=== PATIENT | male | born 1955 | race Caucasian/White ===

== ENCOUNTER 2019-03-05 15:15 | Outpatient (CLI) | payer OTHER, SELFPAY ==
--- NOTE | 2019-03-05 | CT_ITS ---
WS: [id number] CT CHEST TECHNIQUE: Noncontrast CT of the chest with coronal and sagittal reformatted images. CLINICAL INFORMATION: APICAL PLEURAL THICKENING COMPARISON: None. DLP: 940.[address] scans at [facility] use at least one of these dose optimization techniques: automat ed exposure control; mA and/or kV adjustment per patient size (includes targeted exams where dose is matched to clinical indication); or iterative reconstruction. FINDINGS: Mild chronic emphysematous changes. No acute pulmonary infiltrates. No consolidation or pleural fluid . Slight fibrosis in the lung apices. Noncalcified pulmonary nodule right middle lobe anteriorly ebony uring 3.5 mm. Additional 4 mm noncalcified nodule left lung base. Recommend 6 month follow-up. Slightly prominent ascending thoracic aorta measuring 3.7 CM. Coronary calcification. No mediastinal or hilar lymphadenopathy. Adrenal glands are normal. Normal caliber upper abdominal aorta. CT/CT chest wo con [id number] IMPRESSION: 1. Mild chronic emphysematous changes. No acute pulmonary infiltrates. 2. 2. Small noncalcified pulmonary nodules in right middle lobe and left lower lobe measuring 3 to 4 mm. Recommend 6 month follow-up. 3. No mediastinal or hilar lymphadenopathy. 4. Slightly prominent ascending thoracic aorta measuring 3.7 mm upper limits o f normal. 5. Coronary calcification.
== END 2019-03-05 15:16 | disposition home or self-care (01) ==
LOC: RAD 15:17
PROVIDERS: Family Provider Internal Medicine; PCP Internal Medicine; Visit Provider Nurse Practitioner
DX: J43.9 Emphysema, unspecified (principal); R91.8 Other nonspecific abnormal finding of lung field; I25.10 Atherosclerotic heart disease of native coronary artery without angina pectoris; I71.2 Thoracic aortic aneurysm, without rupture
CPT/HCPCS: 71250

== ENCOUNTER 2019-03-26 07:04 | Outpatient (CLI) | payer OTHER, SELFPAY ==
--- NOTE | 2019-03-26 07:00 | CT_ITS ---
WS: [id number] CT LEFT LOWER LEG WITH CONTRAST. HISTORY: hematoma, BB placed on a palpable area over the LEFT lower leg. Prior history of trauma. Technique: All CT scans at [facility] use at least one of these dose optimization techniq ues: automated exposure control; mA and/or kV adjustment per patient size (includes targeted exams wh ere dose is matched to clinical indication); or iterative reconstruction. DLP: 1241.89 mGy-cm. Contrast: Omnipaque 300; 95 mL. COMPARISON: None available. There is a soft tissue superficial mass anterior to the distal tibia extending over length of 4.8 cm transversely by 3.8 and anterior posterior by 1.4 cm. This is probably a small resolving hematoma in the superficial soft tissues. Slight mass effect upon the adjacent muscles. There is contiguous edema extending inferiorly over the lateral ankle and foot. The underlying bone is intact. No fractures. CT/CT lower leg LT w con [id number] IMPRESSION: 1. Soft tissue nonenhancing mass over the anterior distal tibia measures 4.8 x 3.8 x 1.4 cm. Most consistent with a resolving hematoma. 2. No fracture. 3. Soft tissue edema continues distally from the hematoma over the foot and an kle.
[2019-03-26] MEDS: iohexol 300 mg/mL 100 mL Btl 95 ML IV (07:43)
== END 2019-03-26 07:05 | disposition home or self-care (01) ==
LOC: CT 07:05
PROVIDERS: Family Provider Internal Medicine; PCP Internal Medicine; Visit Provider Surgery
DX: S80.12XA Contusion of left lower leg, initial encounter (principal)
CPT/HCPCS: 73701; Q9967

== ENCOUNTER 2019-06-10 10:58 | Emergency (ER) | payer OTHER, SELFPAY ==
[2019-06-10 11:16] VITALS: BP 181/96; PULSE 84; RESP 16; TEMP 36.9; BMI 28.5
[2019-06-10 11:20] VITALS: O2SAT 98
--- NOTE | 2019-06-10 11:27 | XR_ITS ---
WS: [id number] CHEST XRAY TECHNIQUE: Portable chest. CLINICAL INFORMATION: dyspnea/cough COMPARISON: April 23, 2016 FINDINGS: Heart: Normal cardiac silhouette. Lungs: Lungs are clear. No consolidation or pleural effusion. Bones: Normal visualized bony structures. XR/XR chest 1V portable [id number] IMPRESSION: Normal chest
--- NOTE | 2019-06-10 11:28 | ED_ITS ---
HPI - General Adult General: Chief complaint: General Medical Stated complaint: SOB, HIGH BP, WEAKNESS Time Seen by Provider: 06/10/19 11:14 History of Present Illness: HPI narrative: 64 yo male c/o of elevated B/P and headache. He has a history of COPD and notices he has increasing dyspnea over the last month. He has been using an inhaler that he does not know the name of that he took from his father's estate says it does not seem to be helping much. He has noticed that with any exertion he gets very short of breath he cannot really report on whether or not resting seems to improve it. He denies any fever does not really have a productive cough denies any nausea vomiting or diarrhea denies any other illness symptoms lately he is extremely anxious and verbose in his history. Associated symptoms: Reports dyspnea; Deny chest pain, malaise, nausea, rash or vomiting Review of Systems Const: Denies: fever, chills, body aches, change in appetite, fatigue or malaise ENMT: Denies: throat pain, ear pain, nasal discharge or nasal congestion Card: Reports: shortness of breath on exertion; Denies: chest pain, edema or shortness of breath when lying down Resp: Reports: shortness of breath; Denies: productive cough or non-productive cough GI: Denies: abdominal pain, nausea, vomiting, vomiting blood, coffee grounds in vomit, diarrhea, constipation, bloating, blood in stool or black tarry stool : Denies: flank pain, painful urination, urinary frequency or urinary urgency Skin/Breast: Denies: rash or itching PFSH ED PFSH: Social History Smoking and tobacco status: current every day smoker cigarettes Packs smoked per day: 1 Second hand smoke exposure: No Alcohol intake: never Adopted: No Caregiver/support person: Yes Lives independently: Yes Household members: spouse Housing: House Marital status: Single service: No Current occupational status: employed Current occupation: [employer] Current occupational exposures/hazards: No Pets and animals: No History of recent travel: No Leisure activites: exercise, hunting and fishing Sexually active: No Current gender identity: Male Mena/Orthodox: Rastafari Special mena needs: No Agree to transfusion: No Financial difficulty paying for basics: Decline to Answer Physical Exam Const: COMMON NORMALS: no apparent distress GENERAL APPEARANCE: cooperative and comfortable ORIENTATION/CONSCIOUSNESS: Yes awake, Yes oriented to person, Yes oriented to place and Yes oriented to time HENMT: COMMON NORMALS: normocephalic, head/scalp atraumatic, hearing grossly normal bilaterally, external ears normal, EAC's normal, TM's normal bilaterally, nasal mucous membranes and turbinates normal, moist oral mucous membranes and oropharynx normal HEAD & SCALP: normocephalic and atraumatic NOSE: nasal m ucous membranes and turbinates normal EXTERNAL EAR: Yes external ears normal EXTERNAL AUDITORY CANAL: EAC's normal TYMPANIC MEMBRANE: TM's normal bilaterally Eye: COMMON NORMALS: PERRL, EOMs intact bilaterally, conjunctivae normal and no scleral icterus CONJUNCTIVA: Yes conjunctivae normal PUPIL: Yes PERRL Neck/C-Spine: COMMON NORMALS: full ROM, no lymphadenopathy, supple and no JVD Lymph: LYMPHATIC: no lymphadenopathy noted and no lymphedema noted Resp: COMMON NORMALS: normal respiratory effort, no retractions, no use of accessory muscles and clear to auscultation bilaterally AUSCULTATION: clear to auscultation bilaterally Cardio: COMMON NORMALS: no JVD, regular rate, regular rhythm and no murmurs RATE: regular rate RHYTHM: regular rhythm GI: COMMON NORMALS: soft to palpation and no hepatosplenomegaly AUSCULTATION: Yes normoactive bowel sounds PALPATION: Yes soft, No tender, No guarding and Yes no hepatosplenomegaly Extremity: COMMON NORMALS: normal to inspection, normal capillary refill, no clubbing, cyanosis or edema, no calf tenderness and no pedal edema Neuro: SENSORIUM/ORIENTATION: Yes oriented to person, Yes oriented to place and Yes oriented to time Skin: COMMON NORMALS: no rashes or lesions noted GENERAL SKIN EXAM: no rashes or lesions noted Course Vital Signs: Vital signs: Vital Signs Temperature 98.5 F 06/10/19 11:16 Pulse Rate 85 06/10/19 13:05 Respiratory Rate 16 06/10/19 13:05 Blood Pressure 143/90 06/10/19 13:05 Pulse Oximetry 99 06/10/19 11:32 MDM - General Adult MDM Narrative: Medical decision making narrative: Labs and exam unremarkable he seems to be doing well talking to me is not had any chest pain think more of his shortness of breath is due to his emphysema. We will go ahead and start him on lisinopril 10 mg daily have him follow-up with his primary care doctor return if has any further problems. Also recommend he start taking 81 mg aspirin daily. Lab Data: Labs: Lab Results 06/10/19 06/10/19 06/10/19 Range/Units 11:37 11:37 11:37 WBC 9.6 (4.0-10.0) 10^3/ uL RBC 5.57 H (4.1-5.3) 10^6/u L Hgb 16.2 (11.7-16.6) g/dL Hct 50.2 (42.0-52.0) % MCV 90.1 (80-94) fL MCH 29.1 (28.0-34.0) pg MCHC 32.3 (30.0-36.0) g/dL RDW 13.0 (12.1-15.1) % Plt Count 247 (130-400) 10^3/c mm MPV 10.5 H (7.4-10.4) fL Neut % (Auto) 69.1 % Lymph % (Auto) 23.5 % [place] % (Auto) 5.9 % Eos % (Auto) 0.6 % Baso % (Auto) 0.5 % Neut # (Auto) 6.6 (1.8-7.7) 10^3/u L Lymph # (Auto) 2.3 (0.8-4.8) 10^3/u L [place] # (Auto) 0.6 (0.2-0.9) 10^3/u L Eos # (Auto) 0.1 (0.0-0.8) 10^3/u L Baso # (Auto) 0.1 (0.0-0.1) 10^3/u L Nucleated RBC % (a uto) 0 % Nucleated RBCs # 0.0 /100WBC Sodium 136 (136-145) mmol/L Potassium 4.2 (3.5-5.1) mmol/L Chloride 101 (98-107) mmol/L Carbon Dioxide 22 (22-29) mmol/L Anion Gap 17.2 (5-19) BUN 15 (8-23) mg/dL Creatinine 0.8 (0.7-1.2) mg/dL GFR Calculation 98.0 (90-130) mL/min Glucose 99 (65-115) mg/dL Calculated Osmolal ity 278 L (285-295) mOsm/k g Calcium 10.0 (8.5-10.5) mg/dL Total Bilirubin 0.3 (0.15-1.2) mg/dL AST 21 (0-40) U/L ALT 24 (0-41) U/L Alkaline Phosphata se 82 (40-130) IU/L Troponin T Baselin e 11 (0-15) ng/mL Total Protein 7.4 (6.6-8.7) g/dL Albumin 4.3 (3.5-5.2) g/dL Globulin 3.1 (1.3-4.6) g/dL Urine Color (Yellow) Urine Appearance (CLEAR) Urine pH (5-7) Ur Specific Gravit y (1.005-1.030) Urine Protein (Negative) Urine Glucose (UA) (Normal) Urine Ketones (Negative) Urine Blood (Negative) Urine Nitrate (Negative) Urine Bilirubin (NEGATIVE) Urine Urobilinogen (Negative) mg/dL Ur Leukocyte Lakeisha ase (Negative) 06/10/19 Range/Units 11:38 WBC (4.0-10.0) 10^3/ uL RBC (4.1-5.3) 10^6/u L Hgb (11.7-16.6) g/dL Hct (42.0-52.0) % MCV (80-94) fL MCH (28.0-34.0) pg MCHC (30.0-36.0) g/dL RDW (12.1-15.1) % Plt Count (130-400) 10^3/c mm MPV (7.4-10.4) fL Neut % (Auto) % Lymph % (Auto) % [place] % (Auto) % Eos % (Auto) % Baso % (Auto) % Neut # (Auto) (1.8-7.7) 10^3/u L Lymph # (Auto) (0.8-4.8) 10^3/u L [place] # (Auto) (0.2-0.9) 10^3/u L Eos # (Auto) (0.0-0.8) 10^3/u L Baso # (Auto) (0.0-0.1) 10^3/u L Nucleated RBC % (a uto) % Nucleated RBCs # /100WBC Sodium (136-145) mmol/L Potassium (3.5-5.1) mmol/L Chloride (98-107) mmol/L Carbon Dioxide (22-29) mmol/L Anion Gap (5-19) BUN (8-23) mg/dL Creatinine (0.7-1.2) mg/dL GFR Calculation (90-130) mL/min Glucose (65-115) mg/dL Calculated Osmolal ity (285-295) mOsm/k g Calcium (8.5-10.5) mg/dL Total Bilirubin (0.15-1.2) mg/dL AST (0-40) U/L ALT (0-41) U/L Alkaline Phosphata se (40-130) IU/L Troponin T Baselin e (0-15) ng/mL Total Protein (6.6-8.7) g/dL Albumin (3.5-5.2) g/dL Globulin (1.3-4.6) g/dL Urine Color Straw (Yellow) Urine Appearance Clear (CLEAR) Urine pH 5 (5-7) Ur Specific Gravit y 1.005 (1.005-1.030) Urine Protein Neg (Negative) Urine Glucose (UA) Norm (Normal) Urine Ketones Negative (Negative) Urine Blood Neg (Negative) Urine Nitrate Negative (Negative) Urine Bilirubin Neg (NEGATIVE) Urine Urobilinogen Norm (Negative) mg/dL Ur Leukocyte Lakeisha ase Negative (Negative) Discharge Plan Discharge Patient Disposition: Home, Self-Care Clinical Impression: Benign essential HTN, COPD (chronic obstructive pulmonary disease) Condition: Stable Prescriptions: New lisinopril 10 mg tablet 10 mg PO DAILY Qty: 20 RF: 0 No Action ascorbic acid (vitamin C) 500 mg capsule 2 mg PO DAILY RF: 0 aspirin [Adult Low Dose Aspirin] 81 mg tablet,delayed release (DR/EC) 81 mg PO DAILY RF: 0 Complete Multivitamin Tablet 1 tab PO DAILY RF: 0 pantoprazole 40 mg tablet,delayed release (DR/EC) 40 mg PO DAILY RF: 0 amlodipine 5 mg Tablet 5 mg PO DAILY RF: 0 alprazolam 0.25 mg Tablet 0.25 mg PO DAILY PRN (Reason: Sleep) RF: 0 ibuprofen 200 mg Tablet 200 mg PO Q8H PRN (Reason: Arthritis Pain) RF: 0 Discharge Orders: Discharge Order (Routine); Ordered 06/10/19 Ordered By: Gagan Garnett Referrals: Tesfaye Quezada DO [Primary Care Provider] - Discharge Diet: Usual diet Discharge Activity: Increase activity as tolerated Activity Restrictions/Additional Instructions: Follow-up with Dr. Quezada within 1 week for recheck of your blood pressure. Discharge Date/Time: 06/10/19 13:06 Coding Level of Care Code ED Cloud Infrastructure Architect for Chg Fwd Exam Comprehensive
[2019-06-10 11:32] VITALS: BP 156/98; PULSE 90; RESP 18; O2SAT 99
[2019-06-10 11:43] LABS: Basophils # 0.1 10^3/uL (0.0-0.1); Basophils % 0.5 %; Eosinophils # 0.1 10^3/uL (0.0-0.8); Eosinophils % 0.6 %; Hematocrit 50.2 % (42.0-52.0); Hemoglobin 16.2 g/dL (11.7-16.6); Lymphocytes # 2.3 10^3/uL (0.8-4.8); Lymphocytes % 23.5 %; Mean Corpuscular HGB Conc 32.3 g/dL (30.0-36.0); Mean Corpuscular Hemoglobin 29.1 pg (28.0-34.0); Mean Corpuscular Volume 90.1 fL (80-94); Mean Platelet Volume 10.5 fL (7.4-10.4); Monocytes # 0.6 10^3/uL (0.2-0.9); Monocytes % 5.9 %; Neutrophils # 6.6 10^3/uL (1.8-7.7); Neutrophils % 69.1 %; Nucleated Red Blood Cells % 0 %; Platelet Count 247 10^3/cmm (130-400); Red Blood Count 5.57 10^6/uL (4.1-5.3); White Blood Count 9.6 10^3/uL (4.0-10.0)
[2019-06-10 11:49] LABS: Add Urine Microscopic? NO
[2019-06-10 11:55] LABS: Bilirubin Urine Neg (NEGATIVE); Blood Urine Neg (Negative); Glucose Urine UA Norm (Normal); Ketones Urine Negative (Negative); Leukocyte Esterase Urine Negative (Negative); Nitrate Urine Negative (Negative); Protein Urine Neg (Negative); Specific Gravity, Urine 1.005 (1.005-1.030); Urine Appearance Clear (CLEAR); Urine Color Straw (Yellow); Urobilinogen Urine Norm (Negative); pH Urine 5 (5-7)
[2019-06-10 11:58] LABS: Alanine Aminotransferase 24 U/L (0-41); Albumin Level 4.3 g/dL (3.5-5.2); Alkaline Phosphatase 82 IU/L (40-130); Anion Gap 17.2 (5-19); Aspartate Amino Transferase 21 U/L (0-40); Blood Urea Nitrogen 15 mg/dL (8-23); Carbon Dioxide 22 mmol/L (22-29); Chloride 101 mmol/L (98-107); Globulin 3.1 g/dL (1.3-4.6); Glucose 99 mg/dL (65-115); Osmolality Calculated 278 mOsm/kg (285-295); Potassium 4.2 mmol/L (3.5-5.1); Sodium 136 mmol/L (136-145); Total Bilirubin 0.3 mg/dL (0.15-1.2); Total Protein 7.4 g/dL (6.6-8.7)
--- NOTE | 2019-06-10 11:58 | ECG_ITS ---
Measurements Intervals [place] Rate: 71 P: 55 ME: 172 QRS: -41 QRSD: 111 T: 17 QT: 368 QTc: 402 SINUS RHYTHM MARKED LEFT AXIS DEVIATION [QRS AXIS < -30] MODERATE INTRAVENTRICULAR CONDUCTION DELAY [110+ ms QRS DURATION] No previous ECG available for comparison Electronically Signed On 06-10-2019 18:11:57 CDT by Deon Aaron M.D. [email or web address]
[2019-06-10 12:23] LABS: Troponin(5th) Baseline 11 ng/mL (0-15)
[2019-06-10 13:05] VITALS: BP 143/90; PULSE 85; RESP 16
== END 2019-06-10 13:06 | disposition home or self-care (01) ==
PROVIDERS: Emergency Provider Family Medicine; Family Provider Internal Medicine; PCP Internal Medicine
DX: J44.9 Chronic obstructive pulmonary disease, unspecified (principal); I10 Essential (primary) hypertension; Z79.82 Long term (current) use of aspirin; F17.210 Nicotine dependence, cigarettes, uncomplicated
CPT/HCPCS: 12345; 36415; 71045; 80053; 81003; 84484; 85025; 93005; 99282; 99283

== ENCOUNTER 2019-10-27 08:19 | Outpatient (CLI) | payer OTHER, SELFPAY ==
--- NOTE | 2019-10-27 08:29 | CT_ITS ---
WS: [id number] CT CHEST WITHOUT INTRAVENOUS CONTRAST HISTORY: PULMONARY NODULE TECHNIQUE: Contiguous 5 mm axial imaging performed on the thorax. Coronal and sagittal reformats are submitted. All CT scans at [facility] use at least one of these dose optimization techniq ues: automated exposure control; mA and/or kV adjustment per patient size (includes targeted exams wh ere dose is matched to clinical indication); or iterative reconstruction. CONTRAST: None DLP: 1002.52 mGycm COMPARISON: 03/05/2019 Lungs and central airway: Mild pulmonary hyperinflation. RIGHT middle lobe 4 mm triangular-shaped nod ule is unchanged. Unchanged noncalcified 4 mm nodule at the LEFT lung base. No additional nodules. No pneumonia. Normal vasculature. Pleura: Normal. No pleural effusion. Heart and pericardium: Normal size heart with no pericardial effusion. Mediastinum and denita: Small benign appearing mediastinal and hilar lymph nodes. Calcified lymph node at the LEFT hilum. Vessels: Minimal atherosclerosis aorta. No aneurysm. Pulmonary artery size is slightly enlarged and e qual to the aorta measures 3.3 cm transversely. Chest wall and lower neck: No soft tissue masses. Upper abdomen: Small hiatal hernia. Splenic granulomata. Mild perinephric stranding. Osseous structures: No destructive process. CT/CT chest wo con [id number] IMPRESSION: 1. Stable RIGHT middle and LEFT lower lobe noncalcified pulmonary nodules. Rec ommend additional [address] follow-up. 2. Chronic emphysema. 3. Mild atherosclerosis aorta.
== END 2019-10-27 08:20 | disposition home or self-care (01) ==
LOC: RADWPI 08:23
PROVIDERS: Family Provider Internal Medicine; PCP Internal Medicine; Visit Provider Nurse Practitioner
DX: R91.1 Solitary pulmonary nodule (principal); J43.9 Emphysema, unspecified; I70.0 Atherosclerosis of aorta
CPT/HCPCS: 71250

== ENCOUNTER → 2019-12-31 09:21 | Outpatient (BNVA) | payer OTHER, SELFPAY | PROVIDERS: Family Provider Internal Medicine; PCP Internal Medicine; Visit Provider Surgery | DX: K92.1 Melena (principal); Z20.828 Contact with and (suspected) exposure to other viral communicable diseases; Z11.59 Encounter for screening for other viral diseases | CPT/HCPCS: 87635 ==

== ENCOUNTER 2020-01-04 08:29 | Day surgery (SDC) | payer OTHER, SELFPAY ==
[2019-12-31 13:49] VITALS: BMI 30.9
--- NOTE | 2020-01-04 06:59 | W.PM.OPSUD ---
Surgery/Procedure H&P Update DATE OF PROCEDURE: January 04, 2020 DATE H&P PERFORMED: 12/21/19 H&P UPDATE INFORMATION: I have reviewed H&P completed within last 30 days, I have examined patient prior to procedure and No changes to prior documentation PLANNED PROCEDURE: Operation Date: 01/04/20 09:45 Proposed Procedures p Colonoscopy [id number] K92.1(Not Applicable) - Christopher Ambrose MD
[2020-01-04 09:25] VITALS: BP 129/82; PULSE 87; RESP 18; TEMP 37.1; O2SAT 96
--- NOTE | 2020-01-04 09:37 | P.ANESASSM_ITS ---
Pre-Anesthetic Assessment Pre-Anesthetic Assessment: Height/Weight: Height 1.8 m Weight 100.698 kg Temp Pulse Resp BP Pulse Ox 98.8 F 87 18 129/82 96 01/04/20 09:25 01/04/20 09:25 01/04/20 09:25 01/04/20 09:25 01/04/20 09:25 Preop Diagnosis: hematochezia Proposed Procedure: Operation Date: 01/04/20 09:45 Proposed Procedures p Colonoscopy 09248 K92.1(Not Applicable) - Christopher Ambrose MD Familial anesthetic complications: NONe Was Beta Vaishali taken within 24 hours: N/A Last intake: Intake Last Liquid Date 12/27/19 Last Liquid Time 20:00 Last Solid Date 01/02/20 Last Solid Time 23:00 Social: Social History: No alcohol and No tobacco Comment: former smoker and drinker Exam: Pre-Anes Outpt Exam: alert, oriented x 3, clear to auscultation bilaterally and regular rate & rhythm Airway: Cervical ROM: WNL MP: 3 Dentition: Chipped and Full Pulmonary: Pulmonary: COPD CV/HEM: CV/HEM: HTN Comments: angiogram last year showed no CAD - was performed d/t CXR showing shadowing patient walks everyday uphill 1/4 mile to mailbox, but does get winded GI: GI: GERD Anesthetic Plan: ASA status: 2 Anesthesia: MAC Risk of > 500 ml blood loss (7ml/kg in children): No PFSH Anesthesia PFSH: Medical History (Updated 12/21/19 @ 13:53 by Christopher Ambrose MD) Anxiety COPD (chronic obstructive pulmonary disease) GERD (gastroesophageal reflux disease) Hypertension Surgical History (Updated 12/21/19 @ 13:53 by Christopher Ambrose MD) H/O circumcision History of coronary angiogram History of tonsillectomy Family History Denies family history of Anesthesia complication Bleeding disorder Social History Smoking and tobacco status: former smoker Second hand smoke exposure: No Alcohol intake: never Adopted: No Caregiver/support person: Yes Lives independently: Yes Household members: spouse Housing: House Marital status: Single service: No Current occupational status: employed Current occupation: [employer] Current occupational exposures/hazards: No Pets and animals: No History of recent travel: No Leisure activites: exercise, hunting and fishing Sexually active: No Current gender identity: Male Mena/Yarsanism: Mandaen Special mena needs: No Agree to transfusion: No Financial difficulty paying for basics: Decline to Answer Data Anesthesia Cardiac Studies: No Data to Display
[2020-01-04] MEDS: sodium chloride 0.9% 1,000 ML 30 ML IV (10:01)
[2020-01-04 11:14] VITALS: BP 116/74; PULSE 63; RESP 18; TEMP 36.3; O2SAT 95
[2020-01-04 11:31] VITALS: BP 132/81; PULSE 63; RESP 18; O2SAT 98
--- NOTE | 2020-01-04 14:29 | ANE.PACU2 ---
Inpatient post-anesthesia follow up: Airway intact: Yes Vital signs: Temperature 97.3 F Pulse Rate 63 Respiratory Rate 18 Blood Pressure 132/81 Pulse Oximetry 98 Oxygen Delivery Me thod Nasal Cannula Oxygen Flow Rate 4 Fraction of Inspir ed Oxygen Hydration adequate: Yes Nausea and vomiting: No Pain level: 1 Mental status: Baseline
== END 2020-01-04 11:38 | disposition home or self-care (01) ==
PROVIDERS: PCP Internal Medicine; Visit Provider Surgery
PROC: 0DJD8ZZ Inspection of Lower Intestinal Tract, Via Natural or Artificial Opening Endoscopic (ICD-10-PCS; CPT 45378; principal; 2020-01-04 09:45)
DX: K92.1 Melena (principal); K57.30 Diverticulosis of large intestine without perforation or abscess without bleeding; K64.8 Other hemorrhoids; K21.9 Gastro-esophageal reflux disease without esophagitis; J44.9 Chronic obstructive pulmonary disease, unspecified; I10 Essential (primary) hypertension; Z79.82 Long term (current) use of aspirin; Z79.1 Long term (current) use of non-steroidal anti-inflammatories (NSAID); Z87.891 Personal history of nicotine dependence
CPT/HCPCS: 12345; 45378; J2704; J7030

== ENCOUNTER 2020-03-29 09:26 | Outpatient (RCR) | payer OTHER, SELFPAY | END 2020-04-16 23:59 | disposition home or self-care (01) | LOC: SPT 09:26 | PROVIDERS: Absent Provider Nurse Practitioner; PCP Internal Medicine; Referring Provider Specialist; Visit Provider Specialist | DX: M75.02 Adhesive capsulitis of left shoulder (principal) | CPT/HCPCS: 97110; 97161 ==

== ENCOUNTER 2020-04-17 06:00 | Outpatient (RCR) | payer OTHER, SELFPAY | END 2020-05-17 23:59 | disposition home or self-care (01) | LOC: SPT 06:00 | PROVIDERS: Absent Provider Nurse Practitioner; PCP Internal Medicine; Referring Provider Specialist; Visit Provider Specialist | DX: M75.02 Adhesive capsulitis of left shoulder (principal); M75.32 Calcific tendinitis of left shoulder | CPT/HCPCS: 97110 ==

== ENCOUNTER 2020-05-18 06:00 | Outpatient (RCR) | payer OTHER, SELFPAY | END 2020-06-16 23:59 | disposition home or self-care (01) | LOC: SPT 06:00 | PROVIDERS: Absent Provider Nurse Practitioner; PCP Internal Medicine; Referring Provider Specialist; Visit Provider Specialist | DX: M75.02 Adhesive capsulitis of left shoulder (principal); M75.32 Calcific tendinitis of left shoulder | CPT/HCPCS: 97110 ==

== ENCOUNTER 2020-06-17 06:00 | Outpatient (RCR) | payer OTHER, SELFPAY | END 2020-07-06 16:40 | disposition home or self-care (01) | LOC: SPT 06:00 | PROVIDERS: Absent Provider Nurse Practitioner; PCP Internal Medicine; Referring Provider Specialist; Visit Provider Specialist | DX: M75.02 Adhesive capsulitis of left shoulder (principal); M75.32 Calcific tendinitis of left shoulder | CPT/HCPCS: 97110 ==

== ENCOUNTER 2020-11-06 06:00 | Outpatient (RCR) | payer OTHER, SELFPAY | END 2020-11-16 23:59 | disposition home or self-care (01) | LOC: SPT 06:00 | PROVIDERS: PCP Internal Medicine; Referring Provider Nurse Practitioner; Visit Provider Nurse Practitioner | DX: M25.512 Pain in left shoulder (principal) | CPT/HCPCS: 97110; 97140; 97161 ==

== ENCOUNTER → 2020-11-08 15:27 | Outpatient (BNVA) | payer OTHER, SELFPAY | PROVIDERS: PCP Internal Medicine; Referring Provider Nurse Practitioner; Visit Provider Podiatrist Foot & Ankle Surgery | DX: M77.42 Metatarsalgia, left foot (principal); L60.3 Nail dystrophy; M21.41 Flat foot [pes planus] (acquired), right foot; M21.42 Flat foot [pes planus] (acquired), left foot; M19.071 Primary osteoarthritis, right ankle and foot; M19.072 Primary osteoarthritis, left ankle and foot | CPT/HCPCS: 73630 ==

== ENCOUNTER 2020-11-17 06:00 | Outpatient (RCR) | payer OTHER, SELFPAY | END 2020-12-17 23:59 | disposition home or self-care (01) | LOC: SPT 06:00 | PROVIDERS: PCP Internal Medicine; Referring Provider Nurse Practitioner; Visit Provider Nurse Practitioner | DX: M25.512 Pain in left shoulder (principal) | CPT/HCPCS: 97110; 97140 ==

== ENCOUNTER → 2021-03-28 09:54 | Outpatient (BNVA) | payer OTHER, SELFPAY | PROVIDERS: PCP Internal Medicine; Visit Provider Specialist | DX: M19.012 Primary osteoarthritis, left shoulder (principal) | CPT/HCPCS: 73030 ==

== ENCOUNTER 2021-04-04 12:57 | Emergency (ER) | payer OTHER, SELFPAY ==
[2021-04-04 13:51] VITALS: BP 135/91; PULSE 66; RESP 15; TEMP 36.7; O2SAT 97; BMI 30.7
--- NOTE | 2021-04-04 17:17 | W.ED.GENADLT ---
HPI - General Adult General: Chief complaint: General Medical Stated complaint: HBP 122/99, 180/95, and 183/95, pulse 90 Time Seen by Provider: 04/04/21 17:16 History of Present Illness: 65-year-old male patient comes in today with complaints of chest discomfort and elevated blood pressure. Patient reports that this morning he started to notice his blood pressure running high. Patient then started feeling some chest discomfort. Patient does admit that he has anxiety and does not know of the chest discomfort is due to his anxiety or his elevated blood pressure. 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 andino on 27 April. Patient reports similar symptoms about 1-1/2 years ago in which he saw Dr. andino and within was started on blood pressure medicine. Patient reports history of hypertension, anxiety, frozen shoulder syndrome, GERD, and COPD. Patient appears nontoxic. Patient appears in mild to no pain. Associated symptoms: Reports chest pain Review of Systems General: Reports: 10 or more systems reviewed and unremarkable except in HPI and below Card: Reports: chest pain PFSH ED PFSH: Medical History Anxiety COPD (chronic obstructive pulmonary disease) GERD (gastroesophageal reflux disease) Hypertension Surgical History H/O circumcision History of coronary angiogram History of tonsillectomy Status post colonoscopy (01/04/20) repeat in 10 years Family History Denies family history of Anesthesia complication Bleeding disorder Social History Smoking and tobacco status: former smoker Second hand smoke exposure: No Alcohol intake: never Adopted: No Caregiver/support person: Yes Lives independently: Yes Household members: spouse Housing: House Marital status: Single service: No Current occupational status: employed Current occupation: [employer] Current occupational exposures/hazards: No Pets and animals: No History of recent travel: No Leisure activites: exercise, hunting and fishing Sexually active: No Current gender identity: Male Mena/Episcopalian: Catholic Special mena needs: No Agree to transfusion: No Financial difficulty paying for basics: Decline to Answer Physical Exam Const: COMMON NORMALS: alert HENMT: COMMON NORMALS: normocephalic HEAD & SCALP: normocephalic Neck/C-Spine: COMMON NORMALS: full ROM Chest: COMMONS NORMALS: normal inspection of the chest Resp: COMMON NORMALS: normal respiratory effort and clear to auscultation bilaterally AUSCULTATION: clear to auscultation bilaterally Cardio: COMMON NORMALS: regular rate and regular rhythm RATE: regular rate RHYTHM: regular rhythm GI: COMMON NORMALS: Soft to palpation and non-tender PALPATION: Yes Soft to palpation Extremity: COMMON NORMALS: full ROM and no pedal edema Neuro: SENSORIUM/ORIENTATION: Yes alert GAIT: Yes Normal gait present Psych: COMMON NORMALS: cooperative MOOD & AFFECT: Yes anxious Skin: COMMON NORMALS: no rashes or lesions noted and turgor normal GENERAL SKIN EXAM: no rashes or lesions noted and turgor normal Course Vital Signs: Vital signs: Vital Signs Temperature 98.0 F 04/04/21 20:36 Pulse Rate 63 04/04/21 20:36 Respiratory Rate 16 04/04/21 20:36 Blood Pressure 119/79 04/04/21 20:36 Pulse Oximetry 97 04/04/21 20:36 [facility] - General Adult Medical Decision Making 65-year-old male patient comes in today with complaints of chest discomfort and elevated blood pressure. On exam patient is alert and oriented. Lungs are clear to auscultation. No reproducible chest pain is noted. Abdomen is soft nontender. Vital signs are normal except for some elevation in blood pressure. Differential diagnosis includes but not limited to ACS, uncontrolled hypertension, CHF, PE. D-dimer is in normal range. Troponin was in normal range. CBC and CMP were unremarkable. Patient has noticed that his blood pressure has been elevated more recently which may be the cause for his chest discomfort. No signs of CHF was noted at this time. I recommended that patient increase his lisinopril to 10 mg twice a day. Patient has an appointment to follow-up with his seed corn production manager which he will continue. Patient will continue to monitor his blood pressure daily at home. Patient feels that the chest discomfort most likely was due to his anxiety about his blood pressure and some other situations that are going on at home that we talked in depth about. Patient felt comfortable about going home. Patient knows to return to the ER for worsening symptoms or new concerns. Lab Data : 04/04/21 19:06 04/04/21 20:30 Radiology Impressions Chest X-Ray 04/04/21 17:28 IMPRESSION: No acute findings. Laboratory Results WBC 11.1 10^3/uL (4.0-10.0) H 04/04/21 19:06 RBC 5.81 10^6/uL (4.1-5.3) H 04/04/21 19:06 Hgb 17.0 g/dL (11.7-16.6) H 04/04/21 19:06 Hct 52.7 % (42.0-52.0) H 04/04/21 19:06 MCV 90.7 fl (80-94) 04/04/21 19:06 MCH 29.3 pg (28.0-34.0) 04/04/21 19:06 MCHC 32.3 g/dL (30.0-36.0) 04/04/21 19:06 RDW 12.9 % (12.1-15.1) 04/04/21 19:06 Plt Count 203 10^3/cmm (130-400) 04/04/21 19:06 MPV 11.7 fL (7.4-10.4) H 04/04/21 19:06 Neut % (Auto) 56.1 % 04/04/21 19:06 Lymph % (Auto) 33.7 % 04/04/21 19:06 [place] % (Auto) 8.3 % 04/04/21 19:06 Eos % (Auto) 1.0 % 04/04/21 19:06 Baso % (Auto) 0.5 % 04/04/21 19:06 Neut # (Auto) 6.24 10^3/uL (1.8-7.7) 04/04/21 19:06 Lymph # (Auto) 3.8 10^3/uL (0.8-4.8) 04/04/21 19:06 [place] # (Auto) 0.9 10^3/uL (0.2-0.9) 04/04/21 19:06 Eos # (Auto) 0.1 10^3/uL (0.0-0.8) 04/04/21 19:06 Baso # (Auto) 0.1 10^3/uL (0.0-0.1) 04/04/21 19:06 Nucleated RBC % (auto) 0 % 04/04/21 19:06 Nucleated RBCs # 0.0 /100WBC 04/04/21 19:06 D-Dimer 0.49 ug/mIFEU (0-0.59) 04/04/21 19:06 Sodium 136 mmol/L (136-145) 04/04/21 20:30 Potassium 4.3 mmol/L (3.5-5.1) 04/04/21:30 Chloride 99 mmol/L (98-107) 04/04/21 20:30 Carbon Dioxide 26 mmol/L (22-29) 04/04/21 20:30 Anion Gap 15.3 (5-19) 04/04/21:30 BUN 12 mg/dL (8-23) 04/04/21 20:30 Creatinine 0.8 mg/dL (0.7-1.2) 04/04/21 20:30 GFR Calculation 97.6 mL/min (90-130) 04/04/21: Glucose 91 mg/dL (65-115) 04/04/21 20:30 Calculated Osmolality 281 mOsm/kg (285-295) L 04/04/21 20:30 Calcium 9.9 mg/dL (8.5-10.5) 04/04/21:30 Total Bilirubin 0.5 mg/dL (0.15-1.2) 04/04/21 20:30 AST 17 U/L (0-40) 04/04/21:30 ALT 21 U/L (0-41) 04/04/21:30 Alkaline Phosphatase 75 IU/L (40-130) 04/04/21 20:30 Troponin T Gen 5 ng/L 14 ng/L (0-15) 04/04/21 20:30 Total Protein 7.7 g/dL (6.6-8.7) 04/04/21 20: Albumin 4.7 g/dL (3.5-5.2) 04/04/21 20:30 Globulin 3.0 g/dL (1.3-4.6) 04/04/21 20:30 TSH 7.07 uIU/mL (0.27-4.20) H 04/04/21 20:30 Imaging Data CXR: My impression: No acute disease noted. EKG Data EKG 1: EKG interpretation date: 04/04/21 EKG interpretation time: 17:37 Prior EKG tracings: available for review Interpretation: EKG shows a sinus rhythm with a regular rate at 63 bpm, computer reads a left axis deviation, no ST elevation or ectopy is noted. No significant changes were present to prior EKG done June 10, 2019. Computer generated interpretation: Chest X-Ray 04/04/21 17:28 IMPRESSION: No acute findings. Discharge Plan Discharge Patient Disposition: Home Clinical Impression: Hypertension Condition: Stable Prescriptions: Changed lisinopril 10 mg tablet 10 mg PO BID Qty: 60 0RF No Action ascorbic acid (vitamin C) 500 mg capsule 2 mg PO DAILY 0RF aspirin [Adult Low Dose Aspirin] 81 mg tablet,delayed release (DR/EC) 81 mg PO DAILY 0RF Complete Multivitamin Tablet 1 tab PO DAILY 0RF (DME) Custom Molded Orthotics See Rx Instructions .Route .MEDSUPPLY Qty: 1 0RF Rx Instructions: As directed terbinafine HCl 250 mg tablet 250 mg PO DAILY 30 Days Qty: 30 2RF pantoprazole 40 mg tablet,delayed release (DR/EC) 40 mg PO DAILY 0RF ibuprofen 200 mg Tablet 200 mg PO Q8H PRN (Reason: Arthritis Pain) 0RF Discharge Orders: Discharge ED (Routine); Ordered 04/04/21 Ordered By: Baldo Thompson Referrals: Tesfaye Qeuzada DO [Primary Care Provider] - Patient Instructions: Opioid Safety Activity Restrictions/Additional Instructions: To get better control of your blood pressure I would recommend increasing your lisinopril to 10 mg twice a day. This should improve your blood pressure and get you closer to the goal of a systolic blood pressure less than 120, which is the top number. Drink plenty of water. Use alprazolam as needed for your anxiety. Follow-up with primary care for further instruction. Return to ER for new concerns or worsening symptoms. Keep your cardiology appointment as scheduled. Coding Level of Care Code ED Sap Basis Administrator for Dulce Mariag Fwd History Detailed Exam Comprehensive Medical Decision Making Moderate Complexity Time Spent (min) 40
--- NOTE | 2021-04-04 17:28 | XRR_ITS ---
PROCEDURE INFORMATION: Exam: XR Chest Exam date and time: 04/04/2021 5:28 PM Age: 65 years old Clinical indication: Pain; Angina pectoris; Additional info: Chest discomfort, high BP TECHNIQUE: Imaging protocol: XR of the chest. Views: 1 view. COMPARISON: CT chest con [id number] 10/27/2019 8:38 AM FINDINGS: Lungs: The tips of the lung apices are not included. The lungs are clear. No consolidation. Pleural spaces: Unremarkable. No pleural effusion. No pneumothorax. Heart/Mediastinum: Unremarkable. No cardiomegaly. Bones/joints: Unremarkable. XR/XR chest 1V portable [id number] IMPRESSION: No acute findings.
--- NOTE | 2021-04-04 17:28 | ECG_ITS ---
[facility] Test Date: 2021-04-04 Pat Name: Schuyler Balderas Department: Room: Gender: Male Frame Straightener: : 1955 Requested By: Baldo Huerta Order Number: [id number] Renee MD: Fanny Lama M.D. Measurements Intervals [place] Rate: 63 P: 62 ID: 175 QRS: -35 QRSD: 113 T: 33 QT: 372 QTc: 384 Interpretive Statements SINUS RHYTHM LEFT AXIS DEVIATION [QRS AXIS < -30] MODERATE INTRAVENTRICULAR CONDUCTION DELAY [110+ ms QRS DURATION] Compared to ECG 06/10/2019 12:08:20 No significant changes Electronically Signed On 04-04-2021 21:23:03 ENFORCEMENT MANAGER by Fanny Lama M.D. [id number]
[2021-04-04] MEDS: ibuprofen 200 mg Tablet PO (18:30)
[2021-04-04] MEDS: lisinopril 10 mg Tablet PO (19:18)
[2021-04-04 19:25] LABS: Basophils # 0.1 10^3/uL (0.0-0.1); Basophils % 0.5 %; Eosinophils # 0.1 10^3/uL (0.0-0.8); Hematocrit 52.7 % (42.0-52.0); Lymphocytes # 3.8 10^3/uL (0.8-4.8); Lymphocytes % 33.7 %; Mean Corpuscular HGB Conc 32.3 g/dL (30.0-36.0); Mean Corpuscular Hemoglobin 29.3 pg (28.0-34.0); Mean Corpuscular Volume 90.7 fl (80-94); Mean Platelet Volume 11.7 fL (7.4-10.4); Monocytes # 0.9 10^3/uL (0.2-0.9); Monocytes % 8.3 %; Neutrophils # 6.24 10^3/uL (1.8-7.7); Neutrophils % 56.1 %; Nucleated Red Blood Cells % 0 %; Platelet Count 203 10^3/cmm (130-400); Red Blood Count 5.81 10^6/uL (4.1-5.3); Red Cell Distribution Width 12.9 % (12.1-15.1); White Blood Count 11.1 10^3/uL (4.0-10.0)
[2021-04-04 19:26] LABS: D Dimer 0.49 ug/mIFEU (0-0.59)
[2021-04-04 20:36] VITALS: BP 119/79; PULSE 63; RESP 16; TEMP 36.7; O2SAT 97
[2021-04-04 21:08] LABS: Troponin T (5th) Once 14 ng/L (0-15)
[2021-04-04 21:16] LABS: Alanine Aminotransferase 21 U/L (0-41); Albumin Level 4.7 g/dL (3.5-5.2); Alkaline Phosphatase 75 IU/L (40-130); Anion Gap 15.3 (5-19); Aspartate Amino Transferase 17 U/L (0-40); Blood Urea Nitrogen 12 mg/dL (8-23); Calcium 9.9 mg/dL (8.5-10.5); Carbon Dioxide 26 mmol/L (22-29); Chloride 99 mmol/L (98-107); Glomerular Filtration Rate 97.6 mL/min (90-130); Glucose 91 mg/dL (65-115); Osmolality Calculated 281 mOsm/kg (285-295); Potassium 4.3 mmol/L (3.5-5.1); Sodium 136 mmol/L (136-145); Thyroid Stimulating Hormone 7.07 uIU/mL (0.27-4.20); Total Bilirubin 0.5 mg/dL (0.15-1.2); Total Protein 7.7 g/dL (6.6-8.7)
== END 2021-04-04 21:24 | disposition home or self-care (01) ==
PROVIDERS: Emergency Provider Nurse Practitioner Family; PCP Nurse Practitioner
DX: I10 Essential (primary) hypertension (principal); Z79.82 Long term (current) use of aspirin; J44.9 Chronic obstructive pulmonary disease, unspecified; Z87.891 Personal history of nicotine dependence
CPT/HCPCS: 71045; 80053; 84443; 84484; 85025; 85378; 93005; 99283

== ENCOUNTER → 2021-04-27 08:55 | Outpatient (BNVA) | payer OTHER, SELFPAY | PROVIDERS: PCP Nurse Practitioner; Visit Provider Internal Medicine Cardiovascular Disease | DX: J44.9 Chronic obstructive pulmonary disease, unspecified (principal); K21.9 Gastro-esophageal reflux disease without esophagitis; Z73.1 Type A behavior pattern; I10 Essential (primary) hypertension; Z87.891 Personal history of nicotine dependence | CPT/HCPCS: 99214 ==

== ENCOUNTER → 2021-08-08 09:50 | Outpatient (BNVA) | payer OTHER, SELFPAY | PROVIDERS: PCP Nurse Practitioner; Visit Provider Podiatrist Foot & Ankle Surgery | DX: B35.1 Tinea unguium (principal); M19.079 Primary osteoarthritis, unspecified ankle and foot; M77.42 Metatarsalgia, left foot; M21.41 Flat foot [pes planus] (acquired), right foot; M21.42 Flat foot [pes planus] (acquired), left foot | CPT/HCPCS: 99213; 99214 ==

== ENCOUNTER → 2022-07-26 10:21 | Outpatient (BNVA) | payer OTHER, SELFPAY | PROVIDERS: PCP Nurse Practitioner; Visit Provider Internal Medicine Cardiovascular Disease | DX: R07.9 Chest pain, unspecified (principal); I10 Essential (primary) hypertension; Z87.891 Personal history of nicotine dependence | CPT/HCPCS: 99214 ==

== ENCOUNTER 2022-09-27 08:51 | Outpatient (RCR) | payer OTHER, SELFPAY | END 2022-10-17 23:59 | disposition home or self-care (01) | LOC: SPT 08:51 | PROVIDERS: PCP Nurse Practitioner; Visit Provider Nurse Practitioner | DX: M25.511 Pain in right shoulder (principal) | CPT/HCPCS: 97110; 97140; 97161 ==

== ENCOUNTER → 2022-10-02 07:56 | Outpatient (BNVA) | payer OTHER, SELFPAY | PROVIDERS: PCP Nurse Practitioner; Visit Provider Podiatrist Foot & Ankle Surgery | DX: L60.8 Other nail disorders (principal); B35.1 Tinea unguium | CPT/HCPCS: 99213 ==

== ENCOUNTER 2022-10-18 06:00 | Outpatient (RCR) | payer OTHER, SELFPAY | END 2022-11-16 23:59 | disposition home or self-care (01) | LOC: SPT 06:00 | PROVIDERS: PCP Nurse Practitioner; Visit Provider Nurse Practitioner | DX: M25.511 Pain in right shoulder (principal) | CPT/HCPCS: 97110; 97140 ==

== ENCOUNTER 2022-11-17 06:00 | Outpatient (RCR) | payer OTHER, SELFPAY | END 2022-11-28 23:59 | disposition home or self-care (01) | LOC: SPT 06:00 | PROVIDERS: PCP Nurse Practitioner; Visit Provider Nurse Practitioner | DX: M25.511 Pain in right shoulder (principal) | CPT/HCPCS: 97110; 97140 ==

== ENCOUNTER 2022-12-11 07:33 | Outpatient (CLI) | payer OTHER, SELFPAY ==
--- NOTE | 2022-12-11 07:42 | USCV_ITS ---
Schuyler Balderas Age: 67 Gender: M : 1955 Exam Date: 12/11/2022 07:49 Ordering Phys: Kirti Gama Technologist: HORTENSIA Exam Location: [facility] Indication: SCREENING EVAL FOR AAA HISTORY: Diameter (cm) AP x Transverse x Length Velocity (cm/s) Waveform Prox Aorta: 2.74 x 2.59 x 87.00 Triphasic Mid Aorta: 2.01 x 2.34 x 80.60 Triphasic Distal Aorta: 2.00 x 2.09 x 85.90 Triphasic Right Iliac Prox: 0.72 x 1.06 x 165.40 Triphasic Left Iliac Prox: 1.02 x 1.02 x 131.10 Triphasic Stent Prox Landing x x Aneurysmal Sac Max x x Lt Lat Sac Dim Rt Lat Sac Dim Stent Dist Landing x x Right Iliac Stent x x Left Iliac Stent x x Right Renal Art Left Renal Art FINDINGS: Comparison: none available. A complete assessment of the abdominal aorta was not possible. Limited by body habitus. Ectatic abdominal aorta with evidence of atherosclerotic plaque noted. No evidence of abdominal aortic aneurysm. There is no evidence of a right common iliac artery aneurysm. There is no evidence of a left common iliac artery aneurysm. CONCLUSIONS No evidence of abdominal aortic or bilateral iliac aneurysm. Dr. Sulma Wolff DO (Electronically Signed) Final Date: 11 December 2022 08:50 S
== END 2022-12-11 07:34 | disposition home or self-care (01) ==
LOC: RAD 07:33
PROVIDERS: PCP Nurse Practitioner; Visit Provider Nurse Practitioner
DX: Z13.6 Encounter for screening for cardiovascular disorders (principal)
CPT/HCPCS: 76706

== ENCOUNTER → 2022-12-17 08:50 | Outpatient (BNVA) | payer OTHER, SELFPAY | PROVIDERS: PCP Nurse Practitioner; Visit Provider Surgery | DX: K21.9 Gastro-esophageal reflux disease without esophagitis (principal) | CPT/HCPCS: 99203; 99213 ==

== ENCOUNTER 2022-12-31 08:04 | Day surgery (SDC) | payer OTHER, SELFPAY ==
[2022-12-31 08:21] VITALS: BP 130/88; PULSE 75; RESP 18; TEMP 36.1; O2SAT 97; BMI 30.7
[2022-12-31] MEDS: sodium chloride 0.9% 1,000 ML 30 ML IV (08:38)
--- NOTE | 2022-12-31 08:39 | P.ANESASSM_ITS ---
Pre-Anesthetic Assessment Height/Weight: Height 1.8 m Weight 99.79 kg Temp Pulse Resp BP Pulse Ox O2 Del Method 97 F L 75 18 130/88 97 Room Air 12/31/22 08:21 12/31/22 08:21 12/31/22 08:21 12/31/22 08:21 12/31/22 08:21 12/31/22 08:21 Preop Diagnosis: GERD Operation Date: 12/31/22 09:05 Proposed Procedures p EGD 60578,K21.9(Not Applicable) - Kan Ortiz MD Familial anesthetic complications: None Was Beta Vaishali taken within 24 hours: N/A Was Clonidine taken within 24 hours: N/A Last intake: Intake Last Liquid Date 12/30/22 Last Liquid Time 19:00 Last Solid Date 12/30/22 Last Solid Time 19:00 Social No alcohol and No tobacco (Quit 2 years ago, smoked for 50 years) Exam alert, oriented x 3, clear to auscultation bilaterally and regular rate & rhythm Airway Submandibular: within normal limits Cervical ROM: within normal limits Mallampati: Class III Dentition: chipped (Front) History/ROS No significant history except as noted and No significant complaints Pulmonary Chronic Obstructive Pulmonary Disease and Sleep Apnea CV/HEM Hypertension None reported Hepatic None reported GI Gastroesophageal Reflux Disease (None this morning) Metabolic Hyperlipidemia Musc/skel Osteoarthritis/DJD and Rheumatoid Arthritis Neuropsych Anxiety and Neuropathy Anesthetic Plan ASA status: 3 Anesthesia: Anesthesia Evaluation, General and MAC Risk of > 500 ml blood loss (7ml/kg in children): No Medications/Allergies Home Medications Medication Instructions Recorded Confirmed Last Taken Type ascorbic acid (vitamin C) 500 mg 2 mg PO DAILY 03/22/19 12/27/22 12/27/22 History capsule multivitamin,lp-gtne-gbelerrb 1 tab PO DAILY 03/22/19 12/27/22 12/31/22 History (Complete Multivitamin tablet) ibuprofen 200 mg tablet 200 mg PO Q8H PRN Arthritis Pain 06/10/19 12/27/22 12/29/22 History pantoprazole 40 mg tablet,delayed 40 mg PO DAILY 03/28/21 12/27/22 12/31/22 History release alprazolam 0.25 mg tablet 0.25 mg PO DAILY 03/11/22 11/10/23 11/10/23 History Balance of Nature Veggies & Fruits 1 cap PO DAILY 07/26/22 12/27/22 12/31/22 History glucosamine 500 1 cap PO DAILY 07/26/22 12/27/22 12/31/22 History qe-nokwdpxqc-mkglcljw comp 400 mg-D3 667 unit-C-Mn cap (Lfkuubcxedh-Hwctqxpesae-C5(C-manganese)) lisinopril 10 mg tablet 20 mg PO QAM 07/26/22 12/27/22 12/31/22 History terbinafine HCl 250 mg tablet 250 mg PO DAILY #21 tabs 10/22/22 12/27/22 12/31/22 Rx sucralfate 100 mg/mL oral 10 ml PO BID 6 weeks #840 mL 12/17/22 12/27/22 Unknown Rx suspension Allergies Allergy/AdvReac Type Severity Reaction Status Date / Time No Known Allergies Allergy Verified 12/27/22 13:11 Current Medications Generic Name Dose Route Start Last Admin Trade Name Freq PRN Reason Stop Dose Admin Sodium Chloride 1,000 mls @ 30 mls/hr 12/31/22 08:15 12/31/22 08:38 Sodium Chloride 0.9% IV 01/01/23 08:14 30 mls/hr .Q24H DEBORAH Administration PFSH Anesthesia Medical History Anxiety COPD (chronic obstructive pulmonary disease) GERD (gastroesophageal reflux disease) Hypertension Type A personality Surgical History H/O circumcision History of coronary angiogram History of tonsillectomy Status post colonoscopy (01/04/20) repeat in 10 years Family History Denies family history of Anesthesia complication Bleeding disorder Social History Smoking and tobacco/nicotine status: former use of tobacco/nicotine Second hand smoke exposure: No Alcohol intake: never Substance/Drug Use: never Adopted: No Caregiver/support person: Yes Lives independently: Yes Household members: spouse Housing: House Marital status: Single service: No Current occupational status: employed Current occupation: [employer] Current occupational exposures/hazards: No Pets and animals: No Leisure activites: exercise, hunting and fishing Sexually active: No Do you think of yourself as: Straight/Heterosexual Current gender identity: Male Mena/Jehovah'S Witness: Mormonism Special mena needs: No Agree to transfusion: No Data Anesthesia Cardiac Studies: No Data to Display
--- NOTE | 2022-12-31 08:58 | P.HPUD_ITS ---
Surgery/Procedure H&P Update DATE OF PROCEDURE: December 31, 2022 DATE H&P PERFORMED: 12/17/22 H&P UPDATE INFORMATION: I have reviewed H&P completed within last 30 days, I have examined patient prior to procedure, No changes to prior documentation and H&P is in [facility] EMR on date indicated PREOP DIAGNOSIS: GERD PLANNED PROCEDURE: Operation Date: 12/31/22 09:05 Proposed Procedures p EGD 02993,K21.9(Not Applicable) - Kan Ortiz MD
[2022-12-31 09:18] VITALS: BP 114/71; PULSE 68; RESP 14; TEMP 36.1; O2SAT 95
[2022-12-31 09:28] VITALS: BP 132/73; PULSE 66; RESP 16; O2SAT 95
[2022-12-31 09:35] VITALS: BP 129/86; PULSE 69; RESP 18; O2SAT 97
--- NOTE | 2022-12-31 09:45 | ANE.PACU2 ---
Inpatient post-anesthesia follow up: Airway intact: Yes Vital signs: Temperature 97 F Pulse Rate 69 Respiratory Rate 18 Blood Pressure 129/86 Pulse Oximetry 97 Oxygen Delivery Me thod Room Air Oxygen Flow Rate Fraction of Inspir ed Oxygen Hydration adequate: Yes Nausea and vomiting: No Pain level: 1 Mental status: Baseline
== END 2022-12-31 09:48 | disposition home or self-care (01) ==
PROVIDERS: PCP Nurse Practitioner; Visit Provider Surgery
PROC: 0DJ08ZZ Inspection of Upper Intestinal Tract, Via Natural or Artificial Opening Endoscopic (ICD-10-PCS; CPT 43235; principal; 2022-12-31 09:05)
DX: K21.9 Gastro-esophageal reflux disease without esophagitis (principal); K29.70 Gastritis, unspecified, without bleeding; Z87.891 Personal history of nicotine dependence; J44.9 Chronic obstructive pulmonary disease, unspecified; G47.30 Sleep apnea, unspecified; I10 Essential (primary) hypertension; E78.5 Hyperlipidemia, unspecified; M06.9 Rheumatoid arthritis, unspecified
CPT/HCPCS: 43239; 88305; J2704; J7030

== ENCOUNTER → 2023-01-13 08:02 | Outpatient (BNVA) | payer OTHER, SELFPAY | PROVIDERS: PCP Nurse Practitioner; Visit Provider Surgery | DX: Z09 Encounter for follow-up examination after completed treatment for conditions other than malignant neoplasm (principal) | CPT/HCPCS: 99213 ==

== ENCOUNTER 2023-01-14 14:48 | Outpatient (CLI) | payer OTHER, SELFPAY ==
--- NOTE | 2023-01-14 14:53 | CT_ITS ---
WS: [id number] CT HEAD TECHNIQUE: Noncontrast and contrast-enhanced CT of the head. CLINICAL INFORMATION: TINNITUS COMPARISON: None. DLP: 2093.[address] scans at [facility] use at least one of these dose optimization techniques: automated e xposure control; mA and/or kV adjustment per patient size (includes targeted exams where dose is matc hed to clinical indication); or iterative reconstruction. FINDINGS: No evidence of intracranial hemorrhage or mass effect. Ventricular system and basal cisterns are chapin nt. Mild small vessel changes. Mild parenchymal volume loss. Intracranial vascular calcification. Nor mal gomes-white differentiation. Paranasal sinuses and mastoid air cells are well aerated. Normal visualized posterior nasopharynx. No abnormal intracranial enhancement. No hydrocephalus. No other suspicious findings. IMPRESSION: 1. No evidence of intracranial hemorrhage or mass effect. 2. Mild small vessel changes with mild parenchymal volume loss. 3. Mastoid air cells and paranasal sinuses are well aerated. 4. No abnormal intracranial enhancement.
[2023-01-14] MEDS: iohexol 350 mg/mL 500 mL Btl (per mL) IV (16:10)
== END 2023-01-14 14:49 | disposition home or self-care (01) ==
LOC: RAD 14:49
PROVIDERS: PCP Nurse Practitioner; Visit Provider Nurse Practitioner
DX: H93.19 Tinnitus, unspecified ear (principal)
CPT/HCPCS: 70470; Q9967

== ENCOUNTER → 2023-04-09 10:06 | Outpatient (BNVA) | payer OTHER, SELFPAY | PROVIDERS: PCP Nurse Practitioner; Visit Provider Podiatrist Foot & Ankle Surgery | DX: B35.1 Tinea unguium (principal); L60.8 Other nail disorders | CPT/HCPCS: 11750 ==

== ENCOUNTER → 2023-05-01 10:39 | Outpatient (BNVA) | payer OTHER, SELFPAY | PROVIDERS: PCP Nurse Practitioner; Visit Provider Podiatrist Foot & Ankle Surgery | DX: L60.8 Other nail disorders (principal); B35.1 Tinea unguium | CPT/HCPCS: 99213 ==

== ENCOUNTER → 2024-09-01 10:10 | Outpatient (BNVA) | payer OTHER, SELFPAY | PROVIDERS: PCP Nurse Practitioner; Visit Provider Nurse Practitioner Family | DX: L73.8 Other specified follicular disorders (principal); L81.4 Other melanin hyperpigmentation; L57.8 Other skin changes due to chronic exposure to nonionizing radiation; D48.5 Neoplasm of uncertain behavior of skin; L57.0 Actinic keratosis | CPT/HCPCS: 11102; 17000; 99203 ==

== ENCOUNTER 2024-12-21 16:15 | Emergency (ER) | payer OTHER, SELFPAY ==
--- OUTSIDE RECORDS SUMMARY | 2024-12-21 16:20 | XMS_ITS | Clinical Summary ---
Author Organization [facility] Address [address] [place] [address] Phone Care Team Providers Care Equipment Detailer Name Role Phone Unavailable Primary Care Provider Unavailabl e Encounters Date Type Department Care Team Description 12/07/2024 External Device Data ST[facility] ABSTRACTION Provider, Abstract 10/26/2024 External Device Data [facility] ABSTRACTION Provider, Abstract from Last 3 Months Social History Tobacco Use Types Packs/Day Years Used Date Smoking Tobacco: Never Assessed Sex and Gender Information Value Date Recorded Sex Assigned at Not on file Legal Sex Male 7:02 AM CDT Gender Identity Not on file Sexual Orientation Not on file Plan of Treatment Health Maintenance Due Date Last Done Comments PNEUMOCOCCAL VACCINE 50+ YEA RS (1 of 2 - PCV) 1976 COLORECTAL SCREENING 2002 Colorectal Cancer Screening 2002 FIT-DNA Q 3 years 2002 FIT/FOBT Q 1 year 2002 Flex Sig/CT Colonography Q 5 years 2002 RSV VACCINE (60+ or ) (1 - Risk 50-74 years 1-dose series) 06/01/2007 INFLUENZA VACCINE (#1) 2024 , 11/21/2022, 11/21/2021, Additional history exists COVID-19 Vaccine (2023-2 5 season) 2024 11/19/2023, 11/21/2022, 11/21/2021, Additional history exists DTAP/TDAP/TD VACCINES (2 - T d or Tdap) 12/26/2029 12/27/2019 ZOSTER VACCINE Completed 10/26/2020, 06/14/2020 [place] [address]
[2024-12-21 16:37] VITALS: PULSE 86; RESP 18; TEMP 36.8; O2SAT 98; BMI 31.5
[2024-12-21 16:39] VITALS: BP 123/73
--- NOTE | 2024-12-21 16:48 | USR_ITS ---
PROCEDURE INFORMATION: Exam: US Right Limited Joint or Other Non-Vascular Extremity Structure Exam date and time: 12/21/2024 5:02 PM Age: 69 years old Clinical indication: Injury or trauma; Other: Splinter lesion; Puncture wound; Not specified; Lower arm; Right; Injury date: Approximately 2 weeks ago; Additional info: Lesion right arm, poss retained piece of wood TECHNIQUE: Imaging protocol: US right limited joint or other nonvascular extremity structure. Real-time ultrasound with image documentation. Exam focused on the area of clinical interest. COMPARISON: CT chest wo con [id number] 10/27/2019 8:38 AM FINDINGS: Soft tissues: Right anterior forearm area of interest was scanned using high-resolution grayscale technique. There is a superficial subcutaneous hypoechoic area surrounding a linear mildly hyperechoic 1 mm structure probably service representative of a splinter. The surrounding soft tissue reaction or fluid accumulation is 6-10 mm transverse. US/US soft tissue/extremity [id number] IMPRESSION: Findings compatible with a tiny retained subcutaneous splitter in the area of interest.
--- NOTE | 2024-12-21 16:59 | ED_ITS ---
HPI - Skin/Abscess/Foreign Bdy 2 General: Chief complaint: Skin/Abscess/Foreign Body Stated complaint: [facility] redness, swelling Time Seen by Provider: 12/21/24 16:32 Source: patient Mode of arrival: ambulatory Limitations: no limitations History of Present Illness: Patient is a 69-year-old male who presents to the emergency department [facility] for lesion to right arm that has been present for 2 weeks. He states that the initial injury occurred while handling wood as a splinter from a 2 x 4 got in his arm. States that it started to get red and for a week he had the splinter embedded, but that he pulled it out himself. Was started on antibiotics with initial presentation as well and has since finished 2 rounds of antibiotics but states that he thinks a piece of wood is still in his arm. He tells me that [facility] they set him up an appointment with general surgery, and that general surgery had told him to come to the emergency department immediately. However this patient tells me he has had no other symptoms, no fevers, no nausea/vomiting, no weakness, no malaise or fatigue. He is not reporting any pain to the area, states that it is still red and swollen and he has had some purulent drainage from it. Cannot tell me what antibiotics he has been on. No swelling of the hand or forearm, no red streaking. Overall he is nontoxic-appearing, his vitals are stable. Attempted to call [facility] provider but did not answer. complaint: lesion Onset (ago): week(s) Location: RUE Context: other (Retained foreign body possible, piece of wood) Associated symptoms: Deny chills, fever(s), nausea or vomiting Treatments prior to arrival: antibiotic Related Data Home Medications ?Medication ?Instructions ?Recorded ?Confirmed ascorbic acid (vitamin C) 500 mg 2 mg PO DAILY 0 05/01/23 capsule multivitamin,ii-xaoo-wshwrhin 1 tab PO DAILY 03/22/19 05/01/23 (Complete Multivitamin tablet) ibuprofen 200 mg tablet 200 mg PO Q8H PRN Arthritis Pain 06/10/19 05/01/23 alprazolam 0.25 mg tablet 0.25 mg PO DAILY 04/27/21 Balance of Nature Veggies & Fruits 1 cap PO DAILY 11/0905/01/23 glucosamine 500 1 cap PO DAILY 07/26/2204/17 ib-khuaxmkdw-lzpicpjm comp 400 mg-D3 667 unit-C-Mn cap (Uojbkaykayi-Vjsjxprfbld-M6(C-manganese) ) lisinopril 10 mg tablet 20 mg PO QAM 07/26/22 Previous Rx's ?Medication ?Instructions ?Recorded terbinafine HCl 250 mg tablet 250 mg PO DAILY #21 tabs 10/22/22 sucralfate 100 mg/mL oral 10 ml PO BID 6 weeks #840 mL 12/17/22 suspension cephalexin 500 mg capsule 500 mg PO BID #14 caps 04/09 silver sulfadiazine 1 % topical 1 applic topical BID # 50 grams 04/09/23 cream (Silvadene) doxycycline hyclate 100 mg capsule 100 mg PO DAILY 7 d ays #7 caps 05/01/23 Allergies Allergy/AdvReac Type Severity Reaction Status Date / Time No Known Allergies Allergy Verified 05/01/23 10:51 Review of Systems 2 General: Reports: 10 or more systems reviewed and unremarkable except in HPI and below Const: Denies: fever(s) or chills Card: Denies: chest pain Resp: Denies: dyspnea GI: Denies: abdominal pain, nausea, vomiting or diarrhea Musc: Denies: extremity pain or joint pain Skin/Breast: Reports: non-healing lesions; Denies: rash, skin pain, skin tenderness or new lesions Neuro: Denies: headache(s) PFSH ED 2 PFSH: Medical History Type A personality Anxiety COPD (chronic obstructive pulmonary disease) Hypertension GERD (gastroesophageal reflux disease) Surgical History Status post colonoscopy (01/04/20) repeat in 10 years History of tonsillectomy H/O circumcision History of coronary angiogram Family History Denies family history of Anesthesia complication Bleeding disorder Social History Smoking and tobacco/nicotine status: former use of tobacco/nicotine Second hand smoke exposure: No Alcohol intake: never Substance/Drug Use: never Adopted: No Caregiver/support person: Yes Lives independently: Yes Household members: spouse Housing: House Marital status: Single service: No Current occupational status: employed Current occupation: [employer] Current occupational exposures/hazards: No Pets and animals: No Leisure activites: exercise, hunting and fishing Sexually active: No Do you think of yourself as: Straight/Heterosexual Current gender identity: Male Mena/Tenriism: Episcopal Special mena needs: No Agree to transfusion: No Physical Exam 2 Const: COMMON NORMALS: no acute distress, average body habitus, patient oriented x3, no limitations, healthy appearing, alert and well nourished O THER: Nontoxic HENMT: COMMON NORMALS: normocephalic and atraumatic HEAD & SCALP: n ormocephalic and atraumatic Neck/C-Spine: COMMON NORMALS: full ROM, no lymphadenopathy, supple and no meningeal signs Resp: COMMON NORMALS: normal respiratory effort, No use of accessory muscles and clear to auscultation bilaterally AUSCULTATION: clear to auscultation bilaterally Cardio: COMMON NORMALS: regular rate and regular rhythm RATE: regular rate RHYTHM: regular rhythm Extremity: COMMON NORMALS: full ROM and capillary refill normal OTHER: Distal pulses to right upper extremity palpable Neuro: COMMON NORMALS: patient oriented x3, moves all extremities, no focal motor deficits and no sensory deficits noted SENSORIUM/ORIENTATION: Yes alert MENINGEAL SIGNS: Yes no meningeal signs Skin: COMMON NORMALS: turgor normal NARRATIVE SKIN EXAM: Area of erythema to right forearm, central area of induration with punctate opening, no active drainage. No palpable fluctuance. No red streaking. SKIN IMAGES (MALE): 1. GENERAL SKIN EXAM: turgor normal Course 2 Vital Signs: Vital signs: Vital Signs Temperature 98.2 F 12/21/24 16:37 Pulse Rate 86 12/21/24 16:37 Respiratory Rate 18 12/21/24 16:37 Blood Pressure 123/73 12/21/24 16:39 Pulse Oximetry 98 12/21/24 16:37 Oxygen Delivery Me thod Room Air 12/21/24 16:37 MDM - Skin/Abscess/Foreign Bdy Medicial Decision Making 69-year-old male presenting with 2-week history of nonhealing right forearm lesion after removing large splinter at home. Today's ultrasound demonstrates a very small retained subcutaneous foreign body consistent with wood with associated local soft tissue inflammatory reaction. Patient is afebrile, hemodynamically stable, and overall nontoxic in appearance. Physical exam reveals a small superficial lesion without fluctuance, purulence, or signs of deep space infection. No neurovascular compromise. Laboratory studies were unremarkable, including normal CBC and inflammatory markers, reassuring against systemic infection. The patient has completed 1 outpatient antibiotic course and is currently taking another, and there is not significant improvement in the redness. Given the very small size of the retained splinter and lack of clear visualization or palpation on exam, attempted removal in the ED is unlikely to be successful and carries unnecessary risk of additional tissue trauma, infection, or retained fragments. No emergent indication for incision and exploration at this time. Wound appears stable; no evidence of abscess, sepsis, or rapidly progressive infection. Tetanus status addressed as appropriate. Patient is referred to general surgery for outpatient evaluation and consideration of controlled removal. Shared decision making performed; patient agrees with this plan. Return precautions reviewed for fever, spreading erythema, increasing pain, or other concerning symptoms. Lab Data 12/21/24 16:52 12/21/24 16:52 Radiology Impressions Soft Tissue Ultrasound 12/21/24 16:48 IMPRESSION: Findings compatible with a tiny retained subcutaneous splitter in the area of interest. Laboratory Results WBC 9.59 10^3/uL (3.29-11.43) 12/21/24 16:52 RBC 5.13 10^6/uL (3.85-5.65) 12/21/24 16:52 Hgb 14.90 g/dL (11.27-16.99) 12/21/24 16:52 Hct 45.3 % (37-53) 12/21/24 16:52 MCV 88.3 fl (82-101) 12/21/24 16:52 MCH 29.0 pg (27-33) 12/21/24 16:52 MCHC 32.9 g/dL (30-55) 12/21/24 16:52 RDW 12.7 % (12.1-15.1) 12/21/24 16:52 Plt Count 260 10^3/cmm (157-399) 12/21/24 16:52 MPV 10.9 fL (7.4-10.4) H 12/21/24 16:52 Neut % (Auto) 58.2 % 12/21/24 16:52 Lymph % (Auto) 30.7 % 12/21/24 16:52 Josephine % (Auto) 7.7 % 12/21/24 16:52 Eos % (Auto) 2.5 % 12/21/24 16:52 Baso % (Auto) 0.5 % 12/21/24 16:52 Neut # (Auto) 5.58 10^3/uL (1.8-7.7) 12/21/24 16:52 Lymph # (Auto) 2.9 10^3/uL (0.8-4.8) 12/21/24 16:52 Josephine # (Auto) 0.7 10^3/uL (0.2-0.9) 12/21/24 16:52 Eos # (Auto) 0.2 10^3/uL (0.0-0.8) 12/21/24 16:52 Baso # (Auto) 0.1 10^3/uL (0.0-0.1) 12/21/24 16:52 Nucleated RBC % (auto) 0 % 12/21/24 16:52 Nucleated RBCs # 0.0 /100WBC 12/21/24 16:52 ESR 13 mm/hr (0-10) H 12/21/24 16:52 Sodium 138 mmol/L (136-145) 12/21/24 16:52 Potassium 4.6 mmol/L (3.5-5.1) 12/21/24 16:52 Chloride 102 mmol/L (98-107) 12/21/24 16:52 Carbon Dioxide 26 mmol/L (22-29) 12/21/24 16:52 Anion Gap 14.6 (5-19) 12/21/24 16:52 BUN 19 mg/dL (8-23) 12/21/24 16:52 Creatinine 1.1 mg/dL (0.7-1.2) 12/21/24 16:52 GFR Calculation 66.8 mL/min (90-130) L 12/21/24 16:52 Glucose 110 mg/dL (65-115) 12/21/24 16:52 Calculated Osmolality 289 mOsm/kg (285-295) 12/21/24 16:52 Calcium 9.2 mg/dL (8.5-10.5) 12/21/24 16:52 Total Bilirubin 0.5 mg/dL (0.15-1.2) 12/21/24 16:52 AST 27 U/L (0-40) 12/21/24 16:52 ALT 29 U/L (0-41) 12/21/24 16:52 Alkaline Phosphatase 71 U/L (40-130) 12/21/24 16:52 C-Reactive Protein 8.0 mg/L (0.0-4.9) H 12/21/24 16:52 Total Protein 7.4 g/dL (6.6-8.7) 12/21/24 16:52 Albumin 4.3 g/dL (3.5-5.2) 12/21/24 16:52 Globulin 3.1 g/dL (1.3-4.6) 12/21/24 16:52 All radiology interpretation(s) finalized by discharge Discharge Plan Discharge Patient Disposition: Home Clinical Impression: Cellulitis of arm, right Condition: Stable Prescriptions: No Action ascorbic acid (vitamin C) 500 mg capsule 2 mg PO DAILY Complete Multivitamin Tablet 1 tab PO DAILY Vvisczgjdqm-Hjrlbx-E0 (C-emiliano) 500-400-667 mg-mg-unit capsule 1 cap PO DAILY Balance of Nature Veggies & Fruits 1 cap PO DAILY lisinopril 10 mg tablet 20 mg PO QAM alprazolam 0.25 mg tablet 0.25 mg PO DAILY sucralfate 100 mg/mL suspension 10 ml PO BID 42 Days Qty: 840 0RF silver sulfadiazine [Silvadene] 1 % cream 1 applic topical BID Qty: 50 0RF Rx Instructions: apply a 1.5 mm thickness cephalexin 500 mg capsule 500 mg PO BID Qty: 14 0RF doxycycline hyclate 100 mg capsule 100 mg PO DAILY 7 Days Qty: 7 0RF terbinafine HCl 250 mg tablet 250 mg PO DAILY Qty: 21 0RF Rx Instructions: Take 250mg for 7 days, repeat monthly for a total of 3 months. ibuprofen 200 mg Tablet 200 mg PO Q8H PRN (Reason: Arthritis Pain) Discharge Orders: Discharge ED (Routine); Ordered 12/21/24 Ordered By: Kan Langston Referrals: Gama,Kirti R, [employer] CL[employer] [Primary Care Provider, Nurse Practitioner] Patient Instructions: Patient Portal & Donny Instructions Activity Restrictions/Additional Instructions: Please continue taking antibiotics. Follow-up with general surgery. Return with any fevers, nausea/vomiting, or red streaking up your arm. Your lab work today did not reveal any concerning signs of infection. Ultrasound shows a very tiny retained piece of splinter that is expected to resolve spontaneously. Print Language: Greek Coding Level of Care Code ED [place] [facility] Gauger for Angus Barros
[2024-12-21 17:09] LABS: Hematocrit 45.3 % (37-53); Hemoglobin 14.90 g/dL (11.27-16.99); Mean Corpuscular HGB Conc 32.9 g/dL (30-55); Mean Corpuscular Hemoglobin 29.0 pg (27-33); Mean Corpuscular Volume 88.3 fl (82-101); Nucleated Red Blood Cells % 0 %; Platelet Count 260 10^3/cmm (157-399); Red Blood Count 5.13 10^6/uL (3.85-5.65); White Blood Count 9.59 10^3/uL (3.29-11.43)
[2024-12-21 17:21] LABS: Alanine Aminotransferase 29 U/L (0-41); Albumin Level 4.3 g/dL (3.5-5.2); Alkaline Phosphatase 71 U/L (40-130); Anion Gap 14.6 (5-19); Aspartate Amino Transferase 27 U/L (0-40); Blood Urea Nitrogen 19 mg/dL (8-23); Calcium 9.2 mg/dL (8.5-10.5); Carbon Dioxide 26 mmol/L (22-29); Chloride 102 mmol/L (98-107); Creatinine Clr Calc Pharmacy 77.1625; Globulin 3.1 g/dL (1.3-4.6); Glucose 110 mg/dL (65-115); Osmolality Calculated 289 mOsm/kg (285-295); Potassium 4.6 mmol/L (3.5-5.1); Sodium 138 mmol/L (136-145); Total Protein 7.4 g/dL (6.6-8.7)
[2024-12-21 18:53] VITALS: BP 112/77; PULSE 70; O2SAT 90
--- NOTE | 2024-12-22 07:35 | DCPLANNER ---
Referral sent to General Surgery
== END 2024-12-21 18:57 | disposition home or self-care (01) ==
PROVIDERS: Emergency Provider Physician Assistant; PCP Nurse Practitioner
DX: L03.113 Cellulitis of right upper limb (principal); Z87.891 Personal history of nicotine dependence; J44.9 Chronic obstructive pulmonary disease, unspecified; I10 Essential (primary) hypertension
CPT/HCPCS: 76882; 80053; 85025; 85651; 86140; 99284

== ENCOUNTER → 2024-12-29 09:44 | Outpatient (BNVA) | payer OTHER, SELFPAY | PROVIDERS: PCP Nurse Practitioner; Visit Provider Surgery | DX: L03.113 Cellulitis of right upper limb (principal) | CPT/HCPCS: 99204; 99214 ==

== ENCOUNTER → 2025-01-11 10:31 | Outpatient (BNVA) | payer OTHER, SELFPAY | PROVIDERS: PCP Nurse Practitioner; Visit Provider Surgery | DX: L03.113 Cellulitis of right upper limb (principal) | CPT/HCPCS: 99212 ==